=== PATIENT | male | born 1980 | race Caucasian/White ===

== ENCOUNTER 2016-09-07 13:11 | Observation (INO) | payer OTHER ==
[2016-09-07] VITALS (7 sets, daily range): BP systolic 132–163; BP diastolic 76–92; PULSE 74–102; RESP 17–20; TEMP 97.6–98; O2SAT 95–98
[~2016-09-07] VITALS: Ht 177.8 cm; Wt 77.0 kg
[~2016-09-07 13:11] MED LIST: Z.0.UNABLE TO OBTAIN
[2016-09-07] MEDS ORDERED: CAMPRAL PO (13:39)
[2016-09-07] MEDS ORDERED: SODIUM CHLOR 0.9% 1000 ML INJ 1,000 ML IV SCH (13:57)
[2016-09-07] MEDS ORDERED: LORazepam 2 MG/ML VIAL IV PUSH ONE ×2 (14:00→16:15)
--- NOTE | 2016-09-07 14:06 | PD ---
HPI Chief Complaint: Medical Clearance Time Seen by Provider: 14:00 Travel History International Travel<30 days: No Contact w/Intl Traveler<30days: No Traveled to known affect area: No History of Present Illness HPI Patient is a 35-year-old male presenting with chief complaint of "alcohol withdrawal". He states he has history of alcoholism and has had withdrawal/DTs multiple times. Usually drinks approximately 1 L of vodka daily. Last was 5 PM yesterday. Upon waking this morning he said slight tremors and worsened. Now certain have some sweats and mild anxiety. He denies nausea, vomiting, tactile disturbances, agitation, confusion, visual disturbance and headache. Denies chest pain and shortness of breath. He has mild right flank pain from a fall 4 days prior down several stairs while drunk. This has been evaluated at [facility] and he had CT scans of the head and abdomen and presumably chest. He has some mild pain scalp posteriorly. He denies any seizures or loss of consciousness. He denies other drug use, no history of IVDA. He has a prescription for medication to help reduce alcohol cravings that he is taking, does not know the name. He previously has been on Librium was hospitalized in [place] approximately one month ago as he was taking Librium and drinking alcohol. He has a friend who is also his health care surrogate with him who states that after this occurred she disposed of the remainder of the prescription. He witnessed her [facility] today and they were not able to take him he states. PFSH Past Medical History Diminished Hearing: No Seizures: Yes (WITHDRAW FROM ETOH ) Tetanus Vaccination: < 5 Years Influenza Vaccination: Yes Past Surgical History Other Surgery: Yes (R HAND SX AFTER BOXER FX ) Social History Alcohol Use: Yes (1 liter of vodka daily ) Tobacco Use: No Substance Use: No Allergies-Medications (Allergen,Severity, Reaction): Coded Allergies: No Known Allergies (Unverified , 09/07/16) Reported Meds & Prescriptions Reported Meds & Active Scripts Active Reported [Campral] 666 Mg PO BID Review of Systems Except as stated in HPI: all other systems reviewed are Neg Physical Exam Narrative GENERAL: Well-developed and well-nourished adult male in no acute distress. SKIN: Slight moisture over the back and legs, no facial or chest or abdominal diaphoresis. Warm and dry. Good turgor without tenting. HEAD: Normocephalic and atraumatic. Negative galarza or raccoon sign. Tenderness with palpation posterior skull without laceration or hematoma. EYES: PERRL bilaterally, 5mm. EOMI bilaterally. No injection or icterus present. No proptosis. Lids without edema or erythema. ENT: Buccal mucosa pink and moist. Oropharynx free of erythema, tonsillar hypertrophy, masses, swelling, asymmetry and exudates. Uvula midline and airway patent. NECK: Supple, no midline tenderness, crepitus or step-offs. Trachea midline, no JVD. No cervical or facial lymphadenopathy. CARDIOVASCULAR: Mild tachycardia (102) with regular rhythm without murmurs, rubs , clicks or gallops. Radial and posterior tibial pulses 2+ bilaterally. No pedal edema. RESPIRATORY: Clear to auscultation bilaterally with symmetrical rise and fall, no distress or use of accessory muscles. GASTROINTESTINAL: Right flank there is a large ovoid shaped area of ecchymosis which is mildly tender. No edema or distention. No rebound or guarding. Normal bowel sounds all 4 quadrants. No masses or organomegaly present. MUSCULOSKELETAL: Patient freely moving all four extremities spontaneously. Extremities without clubbing, cyanosis, or edema. No obvious deformities. NEUROLOGIC: CN II-XII grossly intact. Awake and alert and oriented. Patient has tremors the bilateral upper extremities are worse with movement. Motor grossly within normal limits. Normal speech. PSYCHIATRIC: Appropriate mood and affect; insight and judgment normal. Data Data Last Documented VS Vital Signs Date Time Temp Pulse Resp B/P Pulse Ox O2 Delivery O2 Flow Rate FiO2 09/07/16 14:25 20 98 Room Air 09/07/16 13:13 97.8 102 163/91 [id number] (09/07/16 13:40) Complete Blood Count With Diff (09/07/16 13:57) Comprehensive Metabolic Panel (09/07/16 13:57) Lipase (09/07/16 13:57) Prothrombin Time / Inr (Pt) (09/07/16 13:57) Act Partial Throm Time (Ptt) (09/07/16 13:57) Urinalysis - C+S If Indicated (09/07/16 13:57) Iv Access Insert/Monitor (09/07/16 13:57) Ecg Monitoring (09/07/16 13:57) Oximetry (09/07/16 13:57) Sodium Chlor 0.9% 1000 Ml Inj (Ns 1000 M (09/07/16 13:57) Electrocardiogram (09/07/16 13:57) Blood Glucose (09/07/16 13:57) Drug Screen, Random Urine (09/07/16 13:57) Alcohol (Ethanol) (09/07/16 13:57) Lorazepam Inj (Ativan Inj) (09/07/16 14:00) Chest, Single Ap (09/07/16 ) Thiamine Inj (Thiamine Inj) (09/07/16 15:30) Lorazepam Inj (Ativan Inj) (09/07/16 16:15) Place In Observation (09/07/16 ) Code Status (09/07/16 16:04) Vital Signs (Adult) Q4H (09/07/16 16:04) Activity Oob With Assistance (09/07/16 16:04) Diet Regular Basic (09/07/16 Dinner) Sodium Chloride 0.9% Flush (Ns Flush) (09/07/16 16:15) Sodium Chloride 0.9% Flush (Ns Flush) (09/07/16 21:00) Acetaminophen (Tylenol) (09/07/16 16:15) Ondansetron Inj (Zofran Inj) (09/07/16 16:15) Bisacodyl Supp (Dulcolax Supp) (09/07/16 16:15) Magnesium Hydroxide Liq (Milk Of Magnesi (09/07/16 16:15) Lipase (09/08/16 06:00) Pt Request For Service (09/07/16 16:04) Scd Bilateral/Knee High FRANK.BID (09/07/16 16:04) Naloxone Inj (Narcan Inj) (09/07/16 16:15) Complete Blood Count With Diff (09/08/16 06:00) Basic Metabolic Panel (Bmp) (09/08/16 06:00) Magnesium (Mg) (09/08/16 06:00) Chlordiazepoxide (Librium) (09/07/16 16:15) Lorazepam Inj (Ativan Inj) (09/07/16 16:15) Multivitamin (Theragran) (09/07/16 16:15) Folic Acid (Folate) (09/08/16 09:00) Thiamine (Vit B1) (Vitamin B1) (09/08/16 09:00) Admit Order (Ed Use Only) (09/07/16 16:20) Consult Psychiatry (09/07/16 ) Case Management Consult (09/07/16 ) Labs Laboratory Tests Test 09/07/16 14:20 White Blood Count 3.8 TH/MM3 Red Blood Count 4.44 MIL/MM3 Hemoglobin 14.5 GM/DL Hematocrit 42.1 % Mean Corpuscular Volume 94.8 FL Mean Corpuscular Hemoglobin 32.5 PG Mean Corpuscular Hemoglobin 34.3 % Concent Red Cell Distribution Width 13.4 % Platelet Count 160 TH/MM3 Mean Platelet Volume 6.6 FL Neutrophils (%) (Auto) 64.1 % Lymphocytes (%) (Auto) 20.2 % Monocytes (%) (Auto) 15.0 % Eosinophils (%) (Auto) 0.1 % Basophils (%) (Auto) 0.6 % Neutrophils # (Auto) 2.4 TH/MM3 Lymphocytes # (Auto) 0.8 TH/MM3 Monocytes # (Auto) 0.6 TH/MM3 Eosinophils # (Auto) 0.0 TH/MM3 Basophils # (Auto) 0.0 TH/MM3 CBC Comment DIFF FINAL Differential Comment Prothrombin Time 10.5 SEC Prothromb Time International 1.0 RATIO Ratio Activated Partial 26.0 SEC Thromboplast Time Urine Color YELLOW Urine Turbidity CLEAR Urine pH 7.0 Urine Specific [place] 1.019 Urine Protein TRACE mg/dL Urine Glucose (UA) NEG mg/dL Urine Ketones 10 mg/dL Urine Occult Blood NEG Urine Nitrite NEG Urine Bilirubin NEG Urine Urobilinogen LESS THAN 2.0 MG/DL Urine Leukocyte Esterase NEG Urine Squamous Epithelial <1 /hpf Cells Urine Mucus FEW /lpf Microscopic Urinalysis Comment CULT NOT INDICATED Sodium Level 137 MEQ/L Potassium Level 3.8 MEQ/L Chloride Level 97 MEQ/L Carbon Dioxide Level 27.4 MEQ/L Anion Gap 13 MEQ/L Blood Urea Nitrogen 7 MG/DL Creatinine 0.75 MG/DL Estimat Glomerular Filtration 120 ML/MIN Rate Random Glucose 163 MG/DL Calcium Level 8.6 MG/DL Total Bilirubin 0.9 MG/DL Aspartate Amino Transf 110 U/L (AST/SGOT) Alanine Aminotransferase 72 U/L (ALT/SGPT) Alkaline Phosphatase 94 U/L Total Protein 7.2 GM/DL Albumin 3.8 GM/DL Lipase 208 U/L Free Thyroxine 0.87 NG/DL Thyroid Stimulating Hormone 0.786 uIU/ML 3rd Gen Urine Opiates Screen NEG Urine Barbiturates Screen NEG Urine Amphetamines Screen NEG Urine Benzodiazepines Screen POS Urine Cocaine Screen NEG Urine Cannabinoids Screen NEG Ethyl Alcohol Level 51 MG/DL MDM Medical Decision Making Medical Screen Exam Complete: Yes Emergency Medical Condition: Yes Differential Diagnosis Alcohol withdrawal versus alcoholism versus substance abuse versus dehydration versus metabolic disturbance Narrative Course Patient is a 35-year-old male presenting with chief complaint of alcohol withdrawals. The patient states he has had multiple relapses with his alcoholism and has had severely rapid onset of withdrawal symptoms including seizures and DTs in the past. He states his last drink was 5 PM last evening, joints 1 L of vodka daily. On exam he is tremulous at rest, mildly tachycardic and has some diaphoresis of the lower extremity exam back. He is given a 1 mg Ativan which helped and required an additional 1 mg within the hour. Was given thiamine and 1 L normal saline bolus. Obtained records from [facility] which he was at yesterday as he was having pain in his head and abdomen from a fall 2-3 days prior. He has ecchymosis to the abdomen no distention or significant tenderness. Mild scalp tenderness. Obtained records which shows a head CT, C-spine CT, chest, abdomen and pelvis CTs with contrast are all negative. CBC shows WBC 3.8, RBC 4.44. H&H 14.5/42.1. Glucose 163. AST 110, ALT 72, ALP 94. Urine drug screen positive for benzodiazepines from the Ativan given yesterday. Ethanol level was 51. Last evening at other ED was 437. He is accompanied by a female friend who is his healthcare surrogate barone provides some history which the patient corroborates which includes drinking with Librium in the past and having altered mental status and being admitted to hospital in [place]. He was to see his PCP for additional Librium prescription this week but missed the appointment. He attempted to go to [facility] for detox however they turned him away because "they were full ". I spoke with case management and we have no means to get him into a detox program. I discussed with Dr. Cameron and she agrees that he will require medical admission for control of his withdrawal symptoms as he is unreliable for outpatient therapy unless closely followed. Spoke with Dr. Crow who accepted the admission. Diagnosis Primary Impression: Alcohol withdrawal Qualified Code: F10.230 - Alcohol withdrawal, uncomplicated Additional Impression: ETOH abuse Admitting Information Admitting Physician Requests: Admit Condition: Stable Jere Oneil III Sep 07, 2016 14:06
[2016-09-07 14:35] LABS: AUTOMATED NEUTROPHIL # 2.4 TH/MM3 (1.8-7.7); BASOPHIL % 0.6 % (0.0-2.0); EOSINOPHIL % 0.1 % (0.0-4.0); HEMATOCRIT 42.1 % (39.0-51.0); HEMO FLAGS DIFF FINAL; LYMPH % 20.2 % (9.0-44.0); LYMPHOCYTE # 0.8 TH/MM3 (1.0-4.8); MEAN CELL VOLUME 94.8 FL (80.0-100.0); MEAN CORPUSCULAR HEMOGLOBIN 32.5 PG (27.0-34.0); MEAN CORPUSCULAR HGB CONC 34.3 % (32.0-36.0); NEUT % 64.1 % (16.0-70.0); PLATELET COUNT 160 TH/MM3 (150-450); RED BLOOD COUNT 4.44 MIL/MM3 (4.50-5.90); RED CELL DISTRIBUTION WIDTH 13.4 % (11.6-17.2); WHITE BLOOD COUNT 3.8 TH/MM3 (4.0-11.0)
[2016-09-07 14:36] LABS: BLOOD, URINE NEG (NEG); COMMENT (UR) CULT NOT INDICATED; CULTURE IF INDICATED CULT NOT INDICATED; GLUCOSE,URINE NEG (NEG); KETONE, URINE 10 mg/dL (NEG); MUCUS URINE FEW /lpf (OCC); NITRITE,URINE NEG (NEG); SQUAMOUS EPITHELIAL CELL URINE <1 /hpf (0-5); URINE COLOR YELLOW (YELLW/STRAW)
[2016-09-07 14:41] LABS: AMPHETAMINE, URINE NEG (NEG); BARBITURATES, URINE NEG (NEG); COCAINE, URINE NEG (NEG)
--- NOTE | 2016-09-07 14:43 | RADRPT ---
EXAM DATE/TIME: 09/07/2016 14:20 [place] COMPARISON: No previous studies available for comparison. INDICATIONS : Chest discomfort, shortness of breath for 24 hours MEDICAL HISTORY : None. SURGICAL HISTORY : None. ENCOUNTER: Initial ACUITY: 1 day PAIN SCORE: 0/10 LOCATION: Bilateral chest FINDINGS: A single view of the chest demonstrates the lungs to be symmetrically aerated without evidence of mas s, infiltrate or effusion. The cardiomediastinal contours are unremarkable. Osseous structures are intact. CONCLUSION: No evidence of acute cardiopulmonary disease. Jere Hernandez MD on September 07, 2016 at 14:41 Board Certified Radiologist. This report was verified electronically.
[2016-09-07 14:44] LABS: PROTHROMBIN TIME - PATIENT 10.5 SEC (9.8-11.6)
[2016-09-07 14:48] LABS: ANION GAP 13 MEQ/L (5-15)
[2016-09-07 14:52] LABS: ALKALINE PHOSPHATASE 94 U/L (45-117); ALT (GPT) 72 U/L (12-78); AST (GOT) 110 U/L (15-37); BICARBONATE 27.4 MEQ/L (21.0-32.0); BLOOD UREA NITROGEN 7 MG/DL (7-18); CHLORIDE 97 MEQ/L (98-107); GLOMERULAR FILTRATION RATE 120 ML/MIN (>89); POTASSIUM 3.8 MEQ/L (3.5-5.1); SODIUM (NA) 137 MEQ/L (136-145); TOTAL BILIRUBIN ADULT 0.9 MG/DL (0.2-1.0)
[2016-09-07] MEDS ORDERED: THIAMINE HCL 200 MG/2 ML VIAL IM ONE (15:30)
[2016-09-07] MEDS ORDERED: ACETAMINOPHEN 325 MG TAB PO PRN (16:15)
[2016-09-07] MEDS ORDERED: BISACODYL 10 MG SUPP PR PRN (16:15)
[2016-09-07] MEDS ORDERED: SODIUM CHLORIDE 0.9% FLUSH 5 ML FLUSH FLUSH PRN (16:15)
[2016-09-07] MEDS ORDERED: chlordiazePOXIDE 25 MG CAP PO PRN (16:15)
[2016-09-07] MEDS ORDERED: ONDANSETRON HCL 4 MG/2 ML VIAL IVP PRN (16:15)
[2016-09-07] MEDS ORDERED: MAGNESIUM HYDROXIDE SUSP 30 ML CUP PO PRN (16:15)
[2016-09-07] MEDS ORDERED: NALOXONE HCL 0.4 MG/ML AMP IV PRN (16:15)
--- NOTE | 2016-09-07 16:36 | HHI.HP ---
HPI Service [facility] Hospitalists Primary Care Physician Priscilla Mi M.D. Admission Diagnosis ETOH WITHDRAWAL Chief Complaint: etoh abuse Travel History International Travel<30 Days: No Contact w/Intl Traveler <30 Da: No Traveled to Known Affected Are: No History of Present Illness Patient is a pleasant 35-year-old male with history of chronic alcohol abuse and childhood seizure disorder. Apparently patient has been abusing alcohol for the last 13 years, but more so within last few months. Patient states that he has had delirium tremens in the past with alcohol withdrawal as well as seizure activity with alcohol withdrawal. Patient was admitted to [facility] due to alcohol abuse August 01 through August 03, 2016. Patient was again briefly admitted to [facility] on August 24, 2016. Following patient's July admission he was discharged to an inpatient alcohol rehabilitation facility in [place]. However, patient apparently stayed only 4 days and checked himself out. Patient states that he fell approximately 4 days ago falling down some stairs. Patient was seen at [facility] yesterday. Patient underwent CT of the chest, abdomen, pelvis and per report available to me there were no acute findings. Patient had a cervical spine x-ray which also showed no acute findings. Patient presents to [facility] today with his healthcare surrogate. Patient feels that his alcohol abuse is out of control and requests assistance for chemical detoxification. Patient denies any bright red blood from his rectum. Patient denies nausea or vomiting. Patient denies hematemesis. Pt denies any visual or auditory hallucinations. Review of Systems Constitutional: DENIES: Diaphoretic episodes, Fatigue, Fever, Weight gain, Weight loss, Chills, Dizziness, Change in appetite, Night Sweats Endocrine: DENIES: Heat/cold intolerance, Polydipsia, Polyuria, Polyphagia Eyes: DENIES: Blurred vision, Diplopia, Eye inflammation, Eye pain, Vision loss , Photosensitivity, Double Vision Ears, nose, mouth, throat: DENIES: Tinnitus, Hearing loss, Vertigo, Nasal discharge, Oral lesions, Throat pain, Hoarseness, Ear Pain, Running Nose, Epistaxis, Sinus Pain, Toothache, Odynophagia Respiratory: DENIES: Apneas, Cough, Snoring, Wheezing, Hemoptysis, Sputum production, Shortness of breath Cardiovascular: DENIES: Chest pain, Palpitations, Syncope, Dyspnea on Exertion , PND, Lower Extremity Edema, Orthopnea, Claudication Gastrointestinal: DENIES: Abdominal pain, Black stools, Bloody stools, BRB per rectum, Constipation, Diarrhea, GERD, Nausea, Reflux, Vomiting, Difficulty Swallowing, Anorexia Genitourinary: DENIES: Urinary frequency, Urinary incontinence, Urgency, Hematuria, Dysuria, Nocturia Musculoskeletal: COMPLAINS OF: Joint pain, Muscle aches, Stiffness, Joint Swelling, Back pain, Neck pain Integumentary: DENIES: Abnormal pigmentation, Nail changes, Pruritus, Rash Hematologic/lymphatic: DENIES: Bruising, Lymphadenopathy Immunologic/allergic: DENIES: Eczema, Urticaria Neurologic: DENIES: Abnormal gait, Headache, Localized weakness, Paresthesias, Seizures, Speech Problems, Tremor, Poor Balance Psychiatric: DENIES: Anxiety, Confusion, Mood changes, Depression, Hallucinations, Agitation, Suicidal Ideation, Homicidal Ideation, Delusions, History of Bipolar, History of Schizophrenia Past Family Social History Past Medical History 1) chronic alcoholism - Delirium tremens with withdrawal per pt - Seizure activity with withdrawal per pt 2) childhood seizure disorder Past Surgical History orthopedic surgery to right hand following injury Reported Medications Reported Meds & Active Scripts Active Reported [Campral] 666 Mg PO BID Allergies: Coded Allergies: No Known Allergies (Unverified , 09/07/16) Family History Noncontributory Social History - Alcohol: Patient states that he drinks 1 L of vodka daily - Former smoker, patient quit 1 year ago - No illicit street drugs Physical Exam Vital Signs Vital Signs Date Time Temp Pulse Resp B/P Pulse Ox O2 Delivery O2 Flow Rate FiO2 09/07/16 14:25 20 98 Room Air 09/07/16 13:13 97.8 102 17 163/91 95 Physical Exam GENERAL: This is a well-nourished, well-developed patient, in no apparent distress. SKIN: No rashes, ecchymoses or lesions. Cool and dry. HEAD: Atraumatic. Normocephalic. No temporal or scalp tenderness. EYES: Pupils equal round and reactive. Extraocular motions intact. No scleral icterus. No injection or drainage. ENT: Nose without bleeding, purulent drainage or septal hematoma. Throat without erythema, tonsillar hypertrophy or exudate. Uvula midline. Airway patent. NECK: Trachea midline. No JVD or lymphadenopathy. Supple, nontender, no meningeal signs. CARDIOVASCULAR: Regular rate and rhythm without murmurs, gallops, or rubs. RESPIRATORY: Clear to auscultation. Breath sounds equal bilaterally. No wheezes , rales, or rhonchi. GASTROINTESTINAL: Abdomen soft, non-tender, nondistended. No hepato-splenomegaly , or palpable masses. No guarding. MUSCULOSKELETAL: Extremities without clubbing, cyanosis, or edema. No joint tenderness, effusion, or edema noted. No calf tenderness. Negative Homans sign bilaterally. NEUROLOGICAL: Awake and alert. Cranial nerves II through XII intact. Motor and sensory grossly within normal limits. Five out of 5 muscle strength in all muscle groups. Normal speech. Pt is tremulous. Pt's hands tremble when he holds them out. Laboratory Laboratory Tests Test 09/07/16 14:20 White Blood Count 3.8 Red Blood Count 4.44 Hemoglobin 14.5 Hematocrit 42.1 Mean Corpuscular Volume 94.8 Mean Corpuscular Hemoglobin 32.5 Mean Corpuscular Hemoglobin 34.3 Concent Red Cell Distribution Width 13.4 Platelet Count 160 Mean Platelet Volume 6.6 Neutrophils (%) (Auto) 64.1 Lymphocytes (%) (Auto) 20.2 Monocytes (%) (Auto) 15.0 Eosinophils (%) (Auto) 0.1 Basophils (%) (Auto) 0.6 Neutrophils # (Auto) 2.4 Lymphocytes # (Auto) 0.8 Monocytes # (Auto) 0.6 Eosinophils # (Auto) 0.0 Basophils # (Auto) 0.0 CBC Comment DIFF FINAL Differential Comment Prothrombin Time 10.5 Prothromb Time International 1.0 Ratio Activated Partial 26.0 Thromboplast Time Urine Color YELLOW Urine Turbidity CLEAR Urine pH 7.0 Urine Specific [place] 1.019 Urine Protein TRACE Urine Glucose (UA) NEG Urine Ketones 10 Urine Occult Blood NEG Urine Nitrite NEG Urine Bilirubin NEG Urine Urobilinogen LESS THAN 2.0 Urine Leukocyte Esterase NEG Urine Squamous Epithelial <1 Cells Urine Mucus FEW Microscopic Urinalysis Comment CULT NOT INDICATED Sodium Level 137 Potassium Level 3.8 Chloride Level 97 Carbon Dioxide Level 27.4 Anion Gap 13 Blood Urea Nitrogen 7 Creatinine 0.75 Estimat Glomerular Filtration 120 Rate Random Glucose 163 Calcium Level 8.6 Total Bilirubin 0.9 Aspartate Amino Transf 110 (AST/SGOT) Alanine Aminotransferase 72 (ALT/SGPT) Alkaline Phosphatase 94 Total Protein 7.2 Albumin 3.8 Lipase 208 Urine Opiates Screen NEG Urine Barbiturates Screen NEG Urine Amphetamines Screen NEG Urine Benzodiazepines Screen POS Urine Cocaine Screen NEG Urine Cannabinoids Screen NEG Ethyl Alcohol Level 51 Result Diagram: 09/07/16 1420 09/07/16 1420 Imaging Last Impressions Chest X-Ray 09/07/16 0000 Signed Impressions: Service Date/Time: Wednesday, September 07, 2016 14:20 - CONCLUSION: No evidence of acute cardiopulmonary disease. Jere Hernandez MD Septic Shock Reassessment Heart: Regular rate and rhythm Lungs: Clear Skin: Warm Peripheral Pulses: Bounding Right Radial Bounding Left Radial Bounding Right Popliteal Bounding Left Popliteal Bounding Right Dorsalis Pedis Bounding Left Dorsalis Pedis Bounding Right Posterior Tibial Bounding Left Posterior Tibial Capillary Refill: Brisk Assessment and Plan Problem List: (1) ETOH abuse Status: Acute Plan: - Intravenous fluids - Librium 25 mg by mouth 3 times a day - Ativan when necessary - Multivitamin, folate, thiamine - Request psychiatry evaluation - Request assistance from case management in obtaining inpatient alcohol rehabilitation program, if possible - Per history and patient's chart, patient was sent to an inpatient alcohol detoxification program in [place] July 2016 and patient left of his own volition after only 4 days - Unfortunately, patient does have to be willing to accept responsibility and continue in a treatment program - By history patient's alcoholism does sound quite severe. Without willing participation in his treatment, patient risks sequela of alcoholism, rehospitalization, and early . (2) Seizure in childhood Status: Acute Plan: - Pt states that he has been off all seizure medications for many years - Obtain EEG Dyllan Crow DO Sep 07, 2016 16:35
[2016-09-07] MEDS: MULTIVITAMIN TAB PO SCH (16:48)
[2016-09-07] MEDS: chlordiazePOXIDE 25 MG CAP PO SCH (18:00)
[2016-09-07 18:45] LABS: FREE T4 0.87 NG/DL (0.76-1.46)
[2016-09-07] MEDS: SODIUM CHLORIDE 0.9% FLUSH 5 ML FLUSH FLUSH SCH (21:27)
[2016-09-08 04:03] VITALS: BP 161/96; PULSE 75; RESP 20; TEMP 98; O2SAT 99
[2016-09-08] MEDS: LORazepam 2 MG/ML VIAL IV PUSH PRN ×4 (04:11→22:52)
[2016-09-08 07:21] VITALS: BP 125/77; PULSE 75; RESP 20; TEMP 97.8; O2SAT 96
[2016-09-08] MEDS: SODIUM CHLORIDE 0.9% FLUSH 5 ML FLUSH FLUSH SCH ×2 (08:32→20:14)
[2016-09-08] MEDS: THIAMINE HCL 100 MG TAB PO SCH (08:32)
[2016-09-08] MEDS: MULTIVITAMIN TAB PO SCH (08:33)
[2016-09-08] MEDS: chlordiazePOXIDE 25 MG CAP PO SCH ×3 (08:33→17:39)
[2016-09-08] MEDS: FOLIC ACID 1 MG TAB PO SCH (08:33)
--- NOTE | 2016-09-08 11:14 | PD.CONS ---
Provisional Diagnosis Admission Date Sep 07, 2016 at 16:22 [place] I. Alcohol dependency with acute alcohol intoxication F 10.229 History of Present Illness Service Psychiatry Consult Requested By Attending Natacha Reason for Consult Assessment alcohol abuse Primary Care Physician Priscilla Mi M.D. [facility] Patient is a 35-year-old white male admitted through the ED with alcohol intoxication and "withdrawal". Patient protocol level on admission of 51 urine toxicology positive for benzodiazepines. Asked to see because of "alcohol abuse ". At the present time patient rested quietly in his bed on G pod. He is alert oriented calm cooperative white male clean and neat appearing stated age. Insect acknowledged alcoholic. States he drinks over levofloxacin everyday drinking from early a.m. throughout the day. He acknowledges multiple detoxes, multiple rehabs in the past including out of [facility] to the past year. He has had multiple DUIs. He states he has had some counseling number of years ago and had a brief Rodriguez act for about 24-48 hours number of years ago. He does not see a psychiatrist at this time is on no psychotropic medications. He denies suicidality homicidality voices or visions. While the patient does acknowledged his alcohol misuse it does not seem to be any significant desire to attempt to maintain sobriety. In any event at the present time patient does not meet criteria for acute psychiatric hospitalization. He may benefit from his family initiating a Marchman act to help him get to treatment he would probably need. That event at the present time no recommendation for medications, he may benefit also from a low appears she has been they're done. Thanks for consult I will sign off of the present time Review of Systems Except as stated in HPI: all other systems reviewed are Neg Past Family Social History Coded Allergies: No Known Allergies (Unverified , 09/07/16) Past Medical History Nonspecific Reported Medications [Campral] No Conflict [id number] Mg PO BID 09/07/16 Discontinued Reported Medications Miscellaneous (Unable To Obtain Medication History) Misc 04/02/10 Current Medications Medications (Trade) Dose Ordered Sig/Caitlyn Route Start Time Stop Time Status Last Admin (NS Flush) 2 ml UNSCH PRN FLUSH 09/07/16 16:15 (NS Flush) 2 ml BID FLUSH 09/07/16 21:00 09/08/16 08:32 (Tylenol) 650 mg Q4H PRN PO 09/07/16 16:15 (Zofran Inj) 4 mg Q6H PRN IVP 09/07/16 16:15 (Dulcolax Supp) 10 mg DAILY PRN [place] 09/07/16 16:15 (Milk Of Magnesia Liq) 30 ml Q12H PRN PO 09/07/16 16:15 (Narcan Inj) 0.4 mg UNSCH PRN IV 09/07/16 16:15 (Ativan Inj) 1 mg Q4H PRN IV PUSH 09/07/16 16:15 09/08/16 04:11 (Theragran) 1 tab DAILY PO 09/07/16 16:15 09/08/16 08:33 (Folate) 1 mg DAILY PO 09/08/16 09:00 09/08/16 08:33 (Vitamin B1) 100 mg DAILY PO 09/08/16 09:00 09/08/16 08:32 (Librium) 25 mg TID PO 09/07/16 18:00 09/08/16 08:33 Family History No history mental illness noted Social History Patient single lives by self Patient's Strengths (min. 2) Patient healthy verbal cooperative Physical Exam Please see ED assessments Vital Signs Vital Signs Date Time Temp Pulse Resp B/P Pulse Ox O2 Delivery O2 Flow Rate FiO2 09/08/16 07:21 97.8 75 20 125/77 96 09/07/16 20:00 Room Air I/O 09/07/16 09/07/16 09/08/16 08:00 16:00 00:00 Output Total 300 ml Balance -300 ml Mental Status Examination Alert oriented fully need white male laying calmly in bed is cooperative with good eye contact at times his affect is somewhat incongruent with situation Appearance Clean meet Speech: Unremarkable Orientation: x3 Memory: Unremarkable Thought Process: Logical Thought Content: Unremarkable Hallucination Type: None Attention and Concentration: Good Suicidal Ideation: No Previous Suicide Attempts: No Homicidal Ideation: No Previous Homicide Attempts: No Insight: Poor Judgement: Poor Affect: Other Mood: Euthymic Motor Activity: Normal gait (patient in bed) Assessment & Plan Problem List: (1) Alcohol dependence with acute alcoholic intoxication ICD Code: F10.229 (2) Alcohol withdrawal ICD Code: F10.239 Assessment & Plan Estimated LOS: days at this time patient does not be criteria for further psychiatric care or psychiatric hospitalization. He does not meet Rodriguez criteria. Though perhaps a family member could admission a Marchman act which might help this gentleman considering the chronicity intensity and volume of his alcohol use. No recognition for medication at this time patient consult I' ll sign off at this time Discharge Planning See above Request HC Surrog/Guard Advoc?: No Problem Qualifiers (1) Alcohol withdrawal: Qualified Code: F10.230 - Alcohol withdrawal, uncomplicated Jere Pinon MD Sep 08, 2016 11:14
[2016-09-08 11:48] VITALS: BP 132/92; PULSE 75; RESP 22; TEMP 98.5; O2SAT 95
--- NOTE | 2016-09-08 12:27 | HHI.PR ---
Subjective Remarks No new complaints. Pt denies audial or visual hallucinations Objective Vitals Vital Signs Date Time Temp Pulse Resp B/P Pulse Ox O2 Delivery O2 Flow Rate FiO2 09/08/16 11:48 98.5 75 22 132/92 95 09/08/16 07:21 97.8 75 20 125/77 96 09/08/16 04:03 98.0 75 20 161/96 99 09/07/16 23:49 97.6 77 20 132/76 98 09/07/16 20:52 98.0 92 20 158/92 96 09/07/16 20:00 74 20 133/81 97 Room Air 09/07/16 19:00 92 20 132/91 97 Room Air 09/07/16 16:47 95 17 143/92 98 Room Air 09/07/16 14:25 20 98 Room Air 09/07/16 13:13 97.8 102 17 163/91 95 09/07/16 09/07/16 09/08/16 15:00 23:00 07:00 Output Total 300 ml Balance -300 ml Output Urine Total 300 ml # Voids 1 1 Result Diagram: 09/07/16 1420 09/07/16 1420 Imaging Last Impressions Chest X-Ray 09/07/16 0000 Signed Impressions: Service Date/Time: Wednesday, September 07, 2016 14:20 - CONCLUSION: No evidence of acute cardiopulmonary disease. Jere Hernandez MD Objective Remarks GENERAL: This is a well-nourished, well-developed patient, in no apparent distress. CARDIOVASCULAR: Regular rate and rhythm without murmurs, gallops, or rubs. RESPIRATORY: Clear to auscultation. Breath sounds equal bilaterally. No wheezes , rales, or rhonchi. GASTROINTESTINAL: Abdomen soft, non-tender, nondistended. Normal active bowel sounds MUSCULOSKELETAL: Extremities without clubbing, cyanosis, or edema. NEURO: A&Ox3, SAAVEDRA, tremulous at UEs A/P Problem List: (1) ETOH abuse Status: Acute Plan: - Per history and patient's chart, patient was sent to an inpatient alcohol detoxification program in [place] July 2016 and patient left of his own volition after only 4 days - Unfortunately, patient does have to be willing to accept responsibility and continue in a treatment program - By history patient's alcoholism does sound quite severe. Without willing participation in his treatment, patient risks sequela of alcoholism, rehospitalization, and early . - Librium 25 mg by mouth 3 times a day - Ativan when necessary - Multivitamin, folate, thiamine - appreciate input from Psychiatry. Per Psychiatry, pt does NOT meet criteria for Rodriguez Act. Might benefit from [facility] - Request assistance from case management in obtaining inpatient alcohol rehabilitation program, if possible - Pt states that he is about to start a new job & does NOT want an inpt treatment program but might be amenable to an outpt treatment program. - anticipate d/c in next 1-2 days (2) Seizure in childhood Status: Acute Plan: - Pt states that he has been off all seizure medications for many years - EEG --> done, awaiting interpretation Dyllan Crow DO Sep 08, 2016 12:27
[2016-09-08 12:58] LABS: AUTOMATED NEUTROPHIL # 2.2 TH/MM3 (1.8-7.7); BASOPHIL % 0.4 % (0.0-2.0); EOSINOPHIL % 0.6 % (0.0-4.0); HEMATOCRIT 42.9 % (39.0-51.0); HEMO FLAGS DIFF FINAL; LYMPH % 20.3 % (9.0-44.0); LYMPHOCYTE # 0.7 TH/MM3 (1.0-4.8); MEAN CELL VOLUME 94.4 FL (80.0-100.0); MONO % 17.5 % (0.0-8.0); NEUT % 61.2 % (16.0-70.0); PLATELET COUNT 142 TH/MM3 (150-450); RED BLOOD COUNT 4.55 MIL/MM3 (4.50-5.90); RED CELL DISTRIBUTION WIDTH 12.9 % (11.6-17.2); WHITE BLOOD COUNT 3.6 TH/MM3 (4.0-11.0)
[2016-09-08 13:23] LABS: BICARBONATE 28.6 MEQ/L (21.0-32.0); MAGNESIUM 1.8 MG/DL (1.5-2.5); POTASSIUM 3.9 MEQ/L (3.5-5.1)
--- NOTE | 2016-09-08 14:16 | EKG ---
Date Performed: 09/07/2016 Time Performed: 14:33:57 PTAGE: 35 years EKG: Sinus rhythm Within normal limits BORDERLINE ECG NO PREVIOUS TRACING DOCTOR: Tadeo Combs Interpretating Date/Time 09/08/2016 15:24:33
[2016-09-08 15:41] VITALS: BP 149/91; PULSE 81; RESP 22; TEMP 98.1; O2SAT 96
--- NOTE | 2016-09-08 18:55 | MG ---
cc: SHELBY STERLING M.D. Lab No: [id number] Date: 09/08/2016 Age: Sex: M Race: TECHNIQUE: 17 channel EEG. DESCRIPTION: Background a symmetrical alpha. Frequency 8-9 Hz. Amplitude 20 microvolts. During drowsiness, there is some slowing in the theta range. There is occasional muscle artifact. There are no lateralizing features and there are no epileptiform discharges present. INTERPRETATION: Normal EEG. MD SOY Bull/CASSIE /6:48 PM /6:56 PM
[2016-09-08 20:24] VITALS: BP 137/79; PULSE 89; RESP 18; TEMP 97.6; O2SAT 95
[2016-09-09 00:37] VITALS: BP 119/75; PULSE 82; RESP 18; TEMP 97.6; O2SAT 95
[2016-09-09 05:33] VITALS: BP 119/72; PULSE 62; RESP 18; TEMP 97.5; O2SAT 95
[2016-09-09] MEDS: chlordiazePOXIDE 25 MG CAP PO SCH ×2 (08:36→12:05)
[2016-09-09] MEDS: FOLIC ACID 1 MG TAB PO SCH (08:36)
[2016-09-09] MEDS: THIAMINE HCL 100 MG TAB PO SCH (08:36)
[2016-09-09] MEDS: MULTIVITAMIN TAB PO SCH (08:36)
[2016-09-09] MEDS: SODIUM CHLORIDE 0.9% FLUSH 5 ML FLUSH FLUSH SCH (08:36)
[2016-09-09] MEDS: LORazepam 2 MG/ML VIAL IV PUSH PRN (08:40)
[2016-09-09 09:01] VITALS: BP 122/76; PULSE 75; RESP 18; TEMP 96.4; O2SAT 95
[2016-09-09 12:27] VITALS: BP 137/76; PULSE 80; RESP 18; TEMP 97.4; O2SAT 96
[2016-09-09] MEDS ORDERED: CHLO25CA2 PO (13:10)
--- NOTE | 2016-09-09 13:12 | HHI.DCPOC ---
Discharge Care Plan Diagnosis: (1) Alcohol dependence with acute alcoholic intoxication (2) Alcohol withdrawal Goals to Promote Your Health * To prevent worsening of your condition and complications * To maintain your health at the optimal level Directions to Meet Your Goals Take your medications as prescribed Follow your dietary instruction Follow activity as directed Keep your appointments as scheduled Take your immunizations and boosters as scheduled If your symptoms worsen call your PCP, if no PCP go to Urgent Care Center or Emergency Room Smoking is Dangerous to Your Health. Avoid second hand smoke Call the 24-hour hour crisis hotline for domestic abuse at Tadeo Azul MD Sep 09, 2016 13:12
--- NOTE | 2016-09-09 13:25 | HHI.PR ---
Subjective Remarks pt has not been tremulous per his report and nursing. ambulating safely. he is eager for d/c and wants to f/u outpt psych and behavioral services at [facility]. Objective Vitals nad oriented nontremulous. Vital Signs Date Time Temp Pulse Resp B/P Pulse Ox O2 Delivery O2 Flow Rate FiO2 09/09/16 12:27 97.4 80 18 137/76 96 09/09/16 09:01 96.4 75 18 122/76 95 09/09/16 05:33 97.5 62 18 119/72 95 09/09/16 00:37 97.6 82 18 119/75 95 09/08/16 20:24 97.6 89 18 137/79 95 09/08/16 15:41 98.1 81 22 149/91 96 09/08/16 09/08/16 09/09/16 15:00 23:00 07:00 # Voids 3 1 Result Diagram: 09/08/16 1235 09/08/16 1235 Imaging Last Impressions Chest X-Ray 09/07/16 0000 Signed Impressions: Service Date/Time: Wednesday, September 07, 2016 14:20 - CONCLUSION: No evidence of acute cardiopulmonary disease. Jere Hernandez MD A/P Problem List: (1) ETOH abuse Status: Acute Plan: - Per history and patient's chart, patient was sent to an inpatient alcohol detoxification program in [place] July 2016 and patient left of his own volition after only 4 days - Unfortunately, patient does have to be willing to accept responsibility and continue in a treatment program - By history patient's alcoholism does sound quite severe. Without willing participation in his treatment, patient risks sequela of alcoholism, rehospitalization, and early . He was seen by psychiatry. no Rodriguez act initiated. no new meds. [facility] contacted and someone should be contacting him from behavioral services and also needs psychiatry f/u. will taper librium. ask his Healthcare surrogate to assist with meds. pt wants to leave today. He is ambulating safely. (2) Seizure in childhood Status: Acute Plan: - Pt states that he has been off all seizure medications for many years - EEG --..neg. Tadeo Azul MD Sep 09, 2016 13:25
== END 2016-09-09 15:32 | disposition home or self-care (01) ==
LOC: NEPE 13:11 → NEDA 16:22 → NEPGCP 20:49
PROVIDERS: ADMIT Hospitalist; ATTEND Hospitalist
DX: F10.229 Alcohol dependence with intoxication, unspecified (principal); F10.239 Alcohol dependence with withdrawal, unspecified; R94.31 Abnormal electrocardiogram [ECG] [EKG]; Z87.891 Personal history of nicotine dependence; Z91.81 History of falling
CPT/HCPCS: 71010; 80048; 80053; 80307; 80320; 81001; 83690; 83735; 84439; 84443; 85025; 85610; 85730; 93005; 95819; 96361; 96372; 96374; 97163; 99285; G0378; G8987; G8988; J2060; J3411; J7030

== ENCOUNTER 2017-12-22 21:13 | Emergency (ER) | payer SELFPAY ==
[~2017-12-22 21:13] MED LIST changes: +CHLO25CA2 PO; -Z.0.UNABLE TO OBTAIN
[2017-12-22 22:07] VITALS: BP 174/89; PULSE 86; RESP 18; TEMP 98.4; O2SAT 98
[2017-12-23] MEDS ORDERED: chlordiazePOXIDE 25 MG CAP PO STA (01:13)
[2017-12-23] MEDS ORDERED: LORazepam 2 MG/ML VIAL IM ONE (01:15)
[2017-12-23] MEDS ORDERED: CHLO25CA9 PO (01:16)
--- NOTE | 2017-12-23 01:20 | PD ---
HPI Chief Complaint: Alcohol/Drug Intoxication Time Seen by Provider: 01:13 Travel History International Travel<30 days: No Contact w/Intl Traveler<30days: No Traveled to known affect area: No History of Present Illness HPI This is a 37-year-old male presents for evaluation of alcohol withdrawal. He reports that he has been a heavy drinker for several years. On an average day he drinks 20-25 beers per day. This morning he drank 15 beers. He last had a drink at 3:30 PM. He reports that he did not drink this evening because he would like to quit drinking. Since then he has developed tremors. Symptoms are moderate, aggravated by the abrupt cessation of alcohol intake with no alleviating factors. He denies any other associated symptoms. He denies any nausea or vomiting, headache, chest pain, shortness of breath, abdominal pain, diarrhea. He plans on going to a detoxification center such as [facility] however they had no available beds today. No other complaints. PFS Past Medical History Medical History: Denies Significant Hx Asthma: No Anxiety: Yes Depression: No Heart Rhythm Problems: No Cardiovascular Problems: No Chemotherapy: No Chest Pain: No Congestive Heart Failure: No COPD: No Diabetes: No Diminished Hearing: No Endocrine: No Musculoskeletal: No Neurologic: Yes (SEIZURE FOR WITHRAWAL) Psychiatric: No Respiratory: No Radiation Therapy: No Seizures: Yes Sleep Apnea: No Thyroid Disease: No Tetanus Vaccination: < 5 Years Influenza Vaccination: Yes Past Surgical History Eye Surgery: Yes Other Surgery: Yes (R HAND SX AFTER BOXER FX ) Social History Alcohol Use: Yes (DAILY 15 BEERS/ day) Tobacco Use: No Substance Use: No Allergies-Medications (Allergen,Severity, Reaction): Coded Allergies: No Known Allergies (Unverified Adverse Reaction, Unknown, 12/23/17) Reported Meds & Prescriptions Reported Meds & Active Scripts Active Chlordiazepoxide HCl 25 Mg Capsule 1 Cap PO QID Chlordiazepoxide (Chlordiazepoxide HCl) 25 Mg Cap 25 Mg PO DIRECTED librium 25mg po tid x 2 days, 25mg po bid x 5 days, 25mg po daily x 7 days. Review of Systems Except as stated in HPI: all other systems reviewed are Neg Physical Exam Narrative GENERAL: Well-developed well-nourished male in no acute distress. Tremulous. SKIN: Warm and dry. HEAD: Atraumatic. Normocephalic. EYES: Pupils equal and round. No scleral icterus. No injection or drainage. ENT: No nasal bleeding or discharge. Mucous membranes pink and moist. NECK: Trachea midline. No JVD. CARDIOVASCULAR: Regular rate and rhythm. No murmur appreciated. RESPIRATORY: No accessory muscle use. Clear to auscultation. Breath sounds equal bilaterally. GASTROINTESTINAL: Abdomen soft, non-tender, nondistended. Hepatic and splenic margins not palpable. MUSCULOSKELETAL: No obvious deformities. No clubbing. No cyanosis. No edema. NEUROLOGICAL: Awake and alert. No obvious cranial nerve deficits. Tremors noted. Normal speech. PSYCHIATRIC: Appropriate mood and affect; insight and judgment normal. Data Data Last Documented VS Vital Signs Date Time Temp Pulse Resp B/P (MAP) Pulse Ox O2 Delivery O2 Flow Rate FiO2 12/23/17 01:06 168 20 96 12/22/17 22:07 98.4 174/89 (117) Orders Orders Lorazepam Inj (Ativan Inj) (12/23/17 01:15) Chlordiazepoxide (Librium) (12/23/17 01:13) [facility] Medical Decision Making Medical Screen Exam Complete: Yes Emergency Medical Condition: Yes Medical Record Reviewed: Yes Differential Diagnosis Alcohol withdrawal, essential tremor, alcoholism Narrative Course 37-year-old male presents with tremors from alcohol withdrawal. He has no other associated symptoms. He is hemodynamically stable. The plan is to give him a dose of Librium and Ativan here. He will be discharged with a short course of Librium. He understands the dangers of abrupt alcohol cessation after heavy use for several years and he plans on following up in a formal detoxification center such as [facility] in the next few days. Diagnosis Primary Impression: Alcohol withdrawal [facility] Additional Instructions: Medication as needed for withdrawal symptoms. Follow-up at [facility]. Return for any emergent medical conditions. Med/Other Pt SpecificInfo: Prescription(s) given Scripts Chlordiazepoxide HCl (Chlordiazepoxide HCl) 25 Mg Capsule 1 CAP PO QID, #15 Prov: Jo Magana MD 12/23/17 Disposition: 01 DISCHARGE HOME Condition: Stable Gonzales Jones Dec 23, 2017 01:20
== END 2017-12-23 01:36 | disposition home or self-care (01) ==
LOC: NEPD 21:13
DX: F10.239 Alcohol dependence with withdrawal, unspecified (principal)
CPT/HCPCS: 96372; 99283; J2060